=== PATIENT | female | born 1960 | race Caucasian/White ===

== ENCOUNTER 2016-09-27 07:47 | Outpatient (CLI) | payer OTHER | END 2016-09-27 20:24 | disposition home or self-care (01) | LOC: SMA 07:47 | PROVIDERS: ATTEND Family Medicine | DX: N60.12 Diffuse cystic mastopathy of left breast (principal); N60.11 Diffuse cystic mastopathy of right breast | CPT/HCPCS: 76641; G0204 ==

== ENCOUNTER 2018-11-20 07:45 | Outpatient (CLI) | payer OTHER | END 2018-11-20 20:02 | disposition home or self-care (01) | LOC: SMA 07:45 | PROVIDERS: ATTEND Physician Assistant Medical | DX: N63.21 Unspecified lump in the left breast, upper outer quadrant (principal); N60.19 Diffuse cystic mastopathy of unspecified breast | CPT/HCPCS: 76641; 77066 ==